=== PATIENT | male | born 1960 | race Caucasian/White ===

== ENCOUNTER 2021-09-23 18:53 | Inpatient (IN) | payer BC, OTHER ==
[~2021-09-23] VITALS: Ht 175.3 cm; Wt 109.8 kg
[2021-09-23] MEDS ORDERED: LACTATED RINGERS 1,000 ML IV ONE ×2 (19:00→19:03)
[2021-09-23] MEDS ORDERED: NS IV 1000 ML 1,000 ML IV SCH ×2 (19:00→19:45)
[2021-09-23] MEDS ORDERED: NS IV 1000 ML 1,000 ML ONE (19:03)
--- NOTE | 2021-09-23 19:14 | ED General ---
General Stated Complaint: SYNCOPE Source of Information: Patient (VERY LIMITED HISTORIAN ABOUT PMH AND DOES NOT KNOW ANY OF HIS MEDICATIONS), EMS History of Present Illness Date Seen by Provider: Sep 23, 2021 Time Seen by Provider: 18:55 Initial Comments PT ARRIVES VIA EMS PT WAS EATING AT [employer] AND SUDDENLY BECAME UNRESPONSIVE/PASSED OUT GIRLFRIEND DID A VIGOROUS STERNAL RUB AND HE GRADUALLY ROUSED. THERE IS EXTENSIVE MACERATION TO CENTER OF CHEST FROM THIS. EMS REPORT THAT BP WAS LOW 50/36, AND PULSE WAS FAINT, AND PT STARTED TO BECOME UNRESPONSIVE AGAIN, THEN BP 117 SYSTOLIC AND PT WAS AWAKE AND TALKING PT WAS COOL AND CLAMMY AT THE SCENE BUT AWAKE AND TALKING BLOOD GLUCOSE 143 FOR EMS PT STATES HE FEELS FINE NOW, AND FELT FINE ALL DAY, UNTIL IMMEDIATELY BEFORE HE PASSED OUT DENIES CHEST PAIN DENIES SHORTNESS OF BREATH DENIES PALPITATIONS DENIES GI SYMPTOMS DENIES HEADACHE NO VISION CHANGES NO FEVER OR RECENT ILLNESS NO PARESTHESIAS OR MOTOR DEFICITS NO CHANGE IN CHRONIC LEG EDEMA--ACTUALLY MUCH BETTER TODAY THAN NORMAL STATES IT STARTED WITH TIGHTNESS IN THE BACK OF HIS NECK / UPPER BACK/ SHOULDERS--THAT IS GONE NOW PT STATES THIS FIRST HAPPENED ABOUT A MONTH AGO AT WORK--DID NOT SEEK CARE AT THE TIME 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 CACERES AT [facility] FOR A STRESS TEST A COUPLE OF YEARS AGO, THEN NEVER FOLLOWED UP STATES SINCE THE EPISODE HE HAD LAST MONTH, HE NOW HAS A NEW PT APPOINTMENT WITH DR. DWYER AT [facility] ON SEPTEMBER 30. PT HAS ONLY HAD ONE COVID-19 VACCINE AND THAT WAS SOMETIME LAST YEAR. 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 [place], [place] Allergies and Home Medications Allergies Coded Allergies: No Known Drug Allergies (Unverified , 09/23/21) Patient Home Medication List Home Medication List Reviewed: Yes Allopurinol (Allopurinol) 300 Mg Tablet, (Reported) Entered as Reported by: Sivan Malhotra on 09/24/2113 Last Action: New Order Cetirizine HCl (Cetirizine HCl) 10 Mg Tablet, (Reported) Entered as Reported by: Sivan Malhotra on 09/24/2113 Last Action: New Order Diltiazem HCl (Diltiazem 24Hr ER) 180 Mg Cap.er.24h, (Reported) Entered as Reported by: Sivan Malhotra on 09/24/2113 Last Action: New Order Flecainide Acetate (Flecainide Acetate) 150 Mg Tablet, (Reported) Entered as Reported by: Sivan Malhotra on 09/24/2113 Last Action: New Order Furosemide (Furosemide) 20 Mg Tablet, (Reported) Entered as Reported by: Sivan Malhotra on 09/24/2113 Last Action: New Order Gabapentin (Gabapentin) 600 Mg Tablet, (Reported) Entered as Reported by: Sivan Malhotra on 09/24/2113 Last Action: New Order Gabapentin (Gralise) 300 Mg Tab.er.24h, (Reported) Entered as Reported by: Sivan Malhotra on 09/24/2113 Last Action: New Order Lisinopril/Hydrochlorothiazide (Lisinopril-Hctz 20-25 mg Tab) 20 Mg-25 Mg Tablet, (Reported) Entered as Reported by: Sivan Malhotra on 09/24/2113 Last Action: New Order Magnesium Oxide (Magnesium Oxide) 400 Mg (241.3 Mg Magnesium) Tablet, (Reported) Entered as Reported by: Sivan Malhotra on 09/24/2113 Last Action: New Order Omeprazole (Omeprazole) 20 Mg Capsule.dr, (Reported) Entered as Reported by: Sivan Malhotra on 09/24/2113 Last Action: New Order Potassium Chloride (Potassium Chloride) 10 Meq Capsule.er, (Reported) Entered as Reported by: Sivan Malhotra on 09/24/2113 Last Action: New Order Rivaroxaban (Xarelto) 20 Mg Tablet, 20 MG PO DAILY, (Reported) Entered as Reported by: Sivan Malhotra on 09/24/2113 Last Action: New Order Tadalafil (Tadalafil) 20 Mg Tablet, (Reported) Entered as Reported by: Sivan Malhotra on 09/24/2113 Last Action: New Order Review of Systems Review of Systems Constitutional: see HPI, diaphoresis EENTM: no symptoms reported Respiratory: no symptoms reported Cardiovascular: see HPI Gastrointestinal: no symptoms reported; No abdominal pain, No diarrhea, No melena, No nausea, No vomiting Genitourinary: no symptoms reported Musculoskeletal: see HPI Skin: no symptoms reported Psychiatric/Neurological: See HPI; Denies Headache, Denies Numbness, Denies Paresthesia, Denies Seizure, Denies Tingling, Denies Tremors, Denies Weakness Hematologic/Lymphatic: No Symptoms Reported Immunological/Allergic: no symptoms reported Past Dxojcwh-Tqgerl-Xuwrtr Hx Patient Social History Tobacco Use?: Yes Tobacco type used: Cigarettes Smoking Status: Former Smoker Substance use?: Yes Additional substance use comme: "IN THE 70'S"--DOES NOT STATE WHAT KINDS Alcohol Use?: Yes Alcohol type: Beer Alcohol Frequency: Daily Past Medical History Surgeries: Yes Orthopedic Respiratory: No Cardiac: Yes Atrial Fibrillation, Chronic Edema/Swelling, High Cholesterol, Hypertension Neurological: Yes Neuropathy Genitourinary: No Gastrointestinal: No Musculoskeletal: Yes (MULTIPLE ORTHO SURGERIES) Fractures Endocrine: No HEENT: No Cancer: No Psychosocial: No Integumentary: No Blood Disorders: No Family Medical History SOCIAL HISTORY: -SMOKED 1 PPD, QUIT > 5 YEARS AGO -ETOH--DRINKS BEER DAILY--OVER A 12 PACK/WEEK -DRUGS--"IN THE 70'S" --DOES NOT STATE WHAT KINDS PAST SURGICAL HISTORY: -RIGHT KNEE--PATELLA FX/ORIF -RIGHT ANKLE REPAIR -BILATERAL CARPAL TUNNEL SURGERY -BILATERAL CUBITAL TUNNEL SURGERY Physical Exam Vital Signs Vital Signs - First Documented 09/23/21 18:54 Temp 36.6 Pulse 105 Resp 16 B/P (MAP) 61/43 (49) Pulse Ox 95 O2 Delivery Room Air Capillary Refill : Height, Weight, BMI Height: '" Weight: lbs. oz. kg; BMI Method: General Appearance: No Apparent Distress, WD/WN, Obese, Other (AWAKE, ALERT, VERY TALKATIVE.) HEENT: PERRL/EOMI, Moist Mucous Membranes, Other (GLASSES) Neck: Full Range of Motion, Normal Inspection, Non Tender, Supple Respiratory: Normal Breath Sounds, No Accessory Muscle Use, No Respiratory Distress, Other (ABRASION/SKIN MACERATION TO MID CHEST FROM RECENT STERNAL RUB --PRIOR TO ARRIVAL) Cardiovascular: No JVD, No Murmur, Normal Peripheral Pulses, Irregularly Irregular Gastrointestinal: Normal Bowel Sounds, Non Tender, Soft Back: No CVA Tenderness Extremity: Pedal Edema (TRACE EDEMA BILATERALLY. 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 as Tested Skin: Normal Color, Cool (DRY) Focused Exam Sepsis Stage: Sepsis (POSSIBLE SEPSIS VS DEHYDRATION) Possible Source: Pulmonary Lactate Level 09/23/21 19:01: Lactic Acid Level 2.28*H Time of Focused Exam: 21:00 Respiratory: Normal Breath Sounds, No Accessory Muscle Use, No Respiratory Distress Cardiovascular: No Edema, No JVD, No Murmur, Normal Peripheral Pulses, Irregularly Irregular Capillary Refill: Less Than 3 Seconds Skin: normal color, warm/dry Lactic Acid Level Laboratory Tests Test 09/23/21 19:01 Lactic Acid Level 2.28 MMOL/L (0.50-2.00) *H Within 3hrs of presentation: Admin fluids, Admin ABX, Blood cultures prior to ABX's, Focus exam, Lactate level Progress/Results/Core Measures Suspected Sepsis SIRS Temperature: Pulse: Respiratory Rate: Laboratory Tests 09/23/21 19:01: White Blood Count 13.2H Blood Pressure / Mean: 09/23/21 19:01: Lactic Acid Level 2.28*H Laboratory Tests 09/23/21 19:01: Creatinine 1.84H, INR Comment 1.8H, Platelet Count 295, Total Bilirubin 0.4 Results/Orders Lab Results Laboratory Tests Test 09/23/21 19:01 09/23/21 19:02 09/23/21 19:25 Range/Units White Blood Count 13.2 H 4.3-11.0 10^3/uL Red Blood Count 4.20 L 4.30-5.52 10^6/uL Hemoglobin 14.5 13.3-17.7 g/dL Hematocrit 43 40-54 % Mean Corpuscular Volume 103 H 80-99 fL Mean Corpuscular Hemoglobin 35 H 25-34 pg Mean Corpuscular Hemoglobin Concent 34 32-36 g/dL Red Cell Distribution Width 13.6 10.0-14.5 % Platelet Count 295 130-400 10^3/uL Mean Platelet Volume 8.7 L 9.0-12.2 fL Immature Granulocyte % (Auto) 0 % Neutrophils (%) (Auto) 65 42-75 % Lymphocytes (%) (Auto) 24 12-44 % Monocytes (%) (Auto) 7 0-12 % Eosinophils (%) (Auto) 3 0-10 % Basophils (%) (Auto) 1 0-10 % Neutrophils # (Auto) 8.6 H 1.8-7.8 10^3/uL Lymphocytes # (Auto) 3.2 1.0-4.0 10^3/uL Monocytes # (Auto) 0.9 0.0-1.0 10^3/uL Eosinophils # (Auto) 0.4 H 0.0-0.3 10^3/uL Basophils # (Auto) 0.1 0.0-0.1 10^3/uL Immature Granulocyte # (Auto) 0.1 0.0-0.1 10^3/uL Erythrocyte Sedimentation Rate 22 0-30 MM/HR Prothrombin Time 21.3 H 12.2-14.7 SEC INR Comment 1.8 H 0.8-1.4 Activated Partial Thromboplast Time 33 24-35 SEC D-Dimer < 0.27 0.00-0.49 UG/ML Sodium Level 138 135-145 MMOL/L Potassium Level 4.3 3.6-5.0 MMOL/L Chloride Level 99 98-107 MMOL/L Carbon Dioxide Level 24 21-32 MMOL/L Anion Gap 15 H 5-14 MMOL/L Blood Urea Nitrogen 19 H 7-18 MG/DL Creatinine 1.84 H 0.60-1.30 MG/DL Estimat Glomerular Filtration Rate 41 BUN/Creatinine Ratio 10 Glucose Level 128 H 70-105 MG/DL Lactic Acid Level 2.28 *H 0.50-2.00 MMOL/L Calcium Level 9.8 8.5-10.1 MG/DL Corrected Calcium 9.6 8.5-10.1 MG/DL Magnesium Level 1.6 1.6-2.4 MG/DL Total Bilirubin 0.4 0.1-1.0 MG/DL Aspartate Amino Transf (AST/SGOT) 27 5-34 U/L Alanine Aminotransferase (ALT/SGPT) 32 0-55 U/L Alkaline Phosphatase 103 40-136 U/L Total Creatine Kinase 47 30-200 U/L Creatine Kinase MB 1.0 <6.6 NG/ML Myoglobin 98.0 H 10.0-92.0 NG/ML Troponin I < 0.028 <0.028 NG/ML C-Reactive Protein High Sensitivity 0.50 0.00-0.50 MG/DL B-Type Natriuretic Peptide 83.9 <100.0 PG/ML Total Protein 7.7 6.4-8.2 GM/DL Albumin 4.2 3.2-4.5 GM/DL Lipase 54 8-78 U/L Procalcitonin 0.10 H <0.10 NG/ML TSH Trigg Testing 1.32 0.35-4.94 UIU/ML Acetaminophen Level < 10 L 10-30 UG/ML Serum Alcohol < 10 <10 MG/DL Influenza Type A (RT-PCR) Not Detected Not Detecte Influenza Type B (RT-PCR) Not Detected Not Detecte SARS-CoV-2 RNA (RT-PCR) Detected H Not Detecte My Orders Orders - ELIJAH BRAUN DO Accucheck Stat ONCE (09/23/21 18:54) Ed Iv/Invasive Line Start (09/23/21 18:54) Ekg Tracing (09/23/21 18:54) O2 (09/23/21 18:54) Monitor-Rhythm Ecg Trace Only (09/23/21 18:54) Ct Head Wo-R/O Stroke (09/23/21 18:54) Chest 1 View, Ap/Pa Only (09/23/21 18:54) Acetaminophen (09/23/21 18:54) Alcohol (09/23/21 18:54) Bnp [place] (09/23/21 18:54) Cbc With Automated Diff (09/23/21 18:54) Comprehensive Metabolic Panel (09/23/21 18:54) Creatine Kinase (09/23/21 18:54) Creatine Kinase Mb (09/23/21 18:54) Hs C Reactive Protein (09/23/21 18:54) Fibrin Degradation Products (09/23/21 18:54) Drug Screen Stat (Urine) (09/23/21 18:54) Lipase (09/23/21 18:54) Magnesium (09/23/21 18:54) Protime With Inr (09/23/21 18:54) Partial Thromboplastin Time (09/23/21 18:54) Ua Culture If Indicated (09/23/21 18:54) Erythrocyte Sedimentation Rate (09/23/21 18:54) Myoglobin Serum (09/23/21 18:54) Troponin I Kiran (09/23/21 18:54) Ed Iv/Invasive Line Start (09/23/21 18:54) Ed Iv/Invasive Line Start (09/23/21 19:00) Lactated Ringers (Lr 1000 Ml Iv Solution (09/23/21 19:00) Ns Iv 1000 Ml (Sodium Chloride 0.9%) (09/23/21 19:00) Lactic Acid Analyzer (09/23/21 19:00) Procalcitonin (Pct) (09/23/21 19:00) Thyroid Analyzer (09/23/21 19:00) Covid 19 Inhouse Test (09/23/21 19:00) Influenza A And B By Pcr (09/23/21 19:00) Isolation Central Supply Req (09/23/21 19:00) Arterial Blood Gas (09/23/21 19:00) Blood Culture (09/23/21 19:00) Ed Iv/Invasive Line Start (09/23/21 19:00) Vital Signs Adult Sepsis Patie Q15M (09/23/21 19:00) Remove Rings In Anticipation O (09/23/21 19:00) Ns Iv 1000 Ml (Sodium Chloride 0.9%) (09/23/21 19:03) Lactated Ringers (Lr 1000 Ml Iv Solution (09/23/21 19:03) Ed Iv/Invasive Line Start (09/23/21 19:41) Ns Iv 1000 Ml (Sodium Chloride 0.9%) (09/23/21 19:45) Ct Zaira Chest/Noang Abd-Pelv W (09/23/21 19:47) Iohexol Injection (Omnipaque 350 Mg/Ml 1 (09/23/21 20:00) Received Contrast (Hold Metformin- Contr (09/23/21 20:00) Ns (Ivpb) (Sodium Chloride 0.9% Ivpb Bag (09/23/21 20:00) Sodium Chloride Flush (Catheter Flush Sy (09/23/21 20:00) Ceftriaxone 1 Gm Pre-Mix (Rocephin 1 Gm (09/23/21 21:15) Azithromycin Injection (Zithromax Inject (09/23/21 21:15) Medications Given in ED Current Medications Medications Dose Ordered Sig/Vivien Route Start Time Stop Time Status Last Admin Dose Admin Iohexol 100 ml ONCE ONCE IV 09/23/21 20:00 09/23/21 20:01 DC 09/23/21 20:13 100 ML Lactated Ringer's 1,000 ml @ 0 mls/hr Q0M ONCE IV 09/23/21 19:00 09/23/21 19:03 DC 09/23/21 19:27 0 MLS/HR Sodium Chloride 10 ml NEEDED PRN IV 09/23/21 20:00 09/23/21 20:14 10 ML Sodium Chloride 100 ml ONCE ONCE IV 09/23/21 20:00 09/23/21 20:01 DC 09/23/21 20:14 80 ML Vital Signs/I&O 09/23/21 09/23/21 18:54 18:54 Temp 36.6 Pulse 105 Resp 16 B/P (MAP) 61/43 (49) Pulse Ox 95 95 O2 Delivery Room Air Room Air 09/23/21 23:59 Intake Total 2100 ml Balance 2100 ml Capillary Refill : Progress Note : Progress Note INITIAL BP 61/47, HR VARIABLE IN ATRIAL FIBRILLATION, BUT NOT IN EXCESS OF 120 BPM GIVEN IV FLUIDS, AND PLACED IN TRENDELENBERG BP UP TO > 100 SYSTOLIC COVID TESTING DONE SEPSIS PROTOCOL INITIATED. PT COMPLETELY ASYMPTOMATIC FOR ENTIRE ER STAY ECG Initial ECG Impression Date: Sep 23, 2021 Initial ECG Impression Time: 19:06 Initial ECG Rate: 77 Initial ECG Rhythm: A Fib/Flutter Initial ECG Impression: Nonspecific Changes (IVCD), Atrial Fibrillation Initial ECG Comparisson: No Previous ECG Available Diagnostic Imaging Comments PER RADIOLOGIST REPORTS AT 1930 CXR---FINDINGS: The cardiac silhouette is within normal limits in size. No significant pulmonary vascular congestion. 9 mm rounded nodular density overlying the right lung base. Otherwise, the lungs are clear. No pleural effusion. No pneumothorax. No acute osseous abnormality. IMPRESSION: 1. 9 mm nodular density overlying the right lung base, favored to relate to the nipple shadow. Recommend repeat frontal and lateral radiographs of the chest with nipple markers in place. True pulmonary nodule not excluded. 2. No additional superimposed acute cardiopulmonary abnormality. CT HEAD--PER RADIOLOGIST REPORT AT 2099 FINDINGS: No intracranial hemorrhage. No intracranial mass, mass effect, midline shift, herniation, hydrocephalus or extra-axial fluid collection. No CT evidence of an acute ischemic infarction. The orbits are unremarkable. Background vascular calcifications. The paranasal sinuses are clear. The calvarium and extracalvarial soft tissues are unremarkable. IMPRESSION: 1. No acute intracranial abnormality. 2. Should there remain clinical concern for recent infarction, then further evaluation with MRI of the brain would be recommended. CT ANGIOGRAM CHEST/ABDOMEN-PELVIS--PER RADIOLOGIST REPORT AT 2100 FINDINGS: The thyroid gland is enlarged and nodular, particularly the left thyroid lobe. No pathologically enlarged lymph nodes within the chest. Mild scattered vascular calcifications. No aneurysmal dilatation of the thoracic aorta. The heart is borderline enlarged. No pericardial effusion. No pleural effusion. The trachea is patent. No pneumothorax. Minimal right lower lobe atelectasis or less likely pneumonitis. No significant filling defect within the central or segmental pulmonary arteries. Minimal scattered osseous degenerative changes without acute osseous abnormality. The liver is unremarkable. 2.5 cm hypodensity within the spleen. The spleen is otherwise unremarkable. 1.4 cm fat density mass within the left adrenal gland. The right adrenal gland is unremarkable. The pancreas is unremarkable. The gallbladder is unremarkable. The left renal collecting system is partially duplicated. The left kidney and left ureter are otherwise unremarkable. The urinary bladder is predominantly decompressed. The prostate gland is unremarkable for age. The appendix is unremarkable. No bowel obstruction or pneumatosis. No significant adenopathy, free air or free fluid within the abdomen or pelvis. Mild scattered osseous degenerative changes without acute osseous abnormality. IMPRESSION: 1. No significant pulmonary embolus. 2. Minimal right basilar atelectasis and/or pneumonitis. 3. Enlarged and nodular thyroid gland. A nonemergent thyroid ultrasound would help to further evaluate if this has not previously been evaluated. 4. 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 5. 2.5 cm splenic hypodensity, favored to relate to a hemangioma or cyst. Reviewed: Reviewed by Ct Departure Communication (Admissions) 2111--SPOKE WITH DR. MORGAN, HOSPITALIST, ACCEPTS PT FOR ADMIT. Impression Primary Impression: Syncope Additional Impressions: Severe hypotension Chronic atrial fibrillation COVID-19 virus infection Dehydration Pneumonia due to COVID-19 virus Renal insufficiency Lactic acidosis Disposition: ADMITTED INPATIENT Condition: Improved Admissions Decision to Admit Reason: Admit from ER (General) Decision to Admit/Date: Sep 23, 2021 Time/Decision to Admit Time: 21:15 Departure-Patient Inst. Referrals: RAÚL HOWARD DO (PCP/Family) Primary Care Physician ELIJAH BRAUN DO Sep 23, 2021 19:14
--- NOTE | 2021-09-23 19:26 | Diagnostic Imaging Report ---
PROCEDURE: CT head w/o r/o stroke. TECHNIQUE: Multiple contiguous axial images were obtained through the brain without the use of intravenous contrast. Auto Exposure Controls were utilized during the CT exam to meet ALARA standards for radiation dose reduction. INDICATION: Neurodeficit, stroke. COMPARISON: None available. FINDINGS: No intracranial hemorrhage. No intracranial mass, mass effect, midline shift, herniation, hydrocephalus or extra-axial fluid collection. No CT evidence of an acute ischemic infarction. The orbits are unremarkable. Background vascular calcifications. The paranasal sinuses are clear. The calvarium and extracalvarial soft tissues are unremarkable. IMPRESSION: 1. No acute intracranial abnormality. 2. Should there remain clinical concern for recent infarction, then further evaluation with MRI of the brain would be recommended. Dictated by: Dictated on workstation # [id number]
--- NOTE | 2021-09-23 19:27 | Diagnostic Imaging Report ---
INDICATION: Syncope. COMPARISON: None available. TECHNIQUE: Single radiograph of the chest dated September 23, 2021. FINDINGS: The cardiac silhouette is within normal limits in size. No significant pulmonary vascular congestion. 9 mm rounded nodular density overlying the right lung base. Otherwise, the lungs are clear. No pleural effusion. No pneumothorax. No acute osseous abnormality. IMPRESSION: 1. 9 mm nodular density overlying the right lung base, favored to relate to the nipple shadow. Recommend repeat frontal and lateral radiographs of the chest with nipple markers in place. True pulmonary nodule not excluded. 2. No additional superimposed acute cardiopulmonary abnormality. Dictated by: Dictated on workstation # [id number]
[2021-09-23 19:30] LABS: BASOPHILS # (AUTO) 0.1 10^3/uL (0.0-0.1); BASOPHILS % (AUTO) 1 % (0-10); EOSINOPHILS # (AUTO) 0.4 10^3/uL (0.0-0.3); EOSINOPHILS % (AUTO) 3 % (0-10); HEMATOCRIT 43 % (40-54); HEMOGLOBIN 14.5 g/dL (13.3-17.7); LYMPHOCYTES # (AUTO) 3.2 10^3/uL (1.0-4.0); LYMPHOCYTES % (AUTO) 24 % (12-44); MEAN CORPUSCULAR HEMOGLOBIN 35 pg (25-34); MEAN CORPUSCULAR HGB CONC 34 g/dL (32-36); MEAN CORPUSCULAR VOLUME 103 fL (80-99); MEAN PLATELET VOLUME 8.7 fL (9.0-12.2); MONOCYTES # (AUTO) 0.9 10^3/uL (0.0-1.0); MONOCYTES % (AUTO) 7 % (0-12); NEUTROPHILS # (AUTO) 8.6 10^3/uL (1.8-7.8); NEUTROPHILS % (AUTO) 65 % (42-75); PLATELET COUNT 295 10^3/uL (130-400); WHITE BLOOD COUNT 13.2 10^3/uL (4.3-11.0)
[2021-09-23 19:39] LABS: ALANINE AMINOTRANSFERASE 32 U/L (0-55); ALBUMIN 4.2 GM/DL (3.2-4.5); ALKALINE PHOSPHATASE 103 U/L (40-136); BILIRUBIN,TOTAL 0.4 MG/DL (0.1-1.0); BUN/CREATININE RATIO 10; CALCIUM 9.8 MG/DL (8.5-10.1); CARBON DIOXIDE 24 MMOL/L (21-32); CHLORIDE 99 MMOL/L (98-107); CREATINE KINASE 47 U/L (30-200); CREATININE SERUM 1.84 MG/DL (0.60-1.30); GFR ESTIMATED 41; GLUCOSE 128 MG/DL (70-105); LIPASE 54 U/L (8-78); MAGNESIUM 1.6 MG/DL (1.6-2.4); POTASSIUM 4.3 MMOL/L (3.6-5.0); SODIUM 138 MMOL/L (135-145); TOTAL PROTEIN 7.7 GM/DL (6.4-8.2)
[2021-09-23 19:52] LABS: ACETAMINOPHEN < 10 UG/ML (10-30)
[2021-09-23 20:00] LABS: INR 1.8 (0.8-1.4); PARTIAL THROMBOPLASTIN TIME 33 SEC (24-35); PROTHROMBIN TIME PATIENT 21.3 SEC (12.2-14.7)
[2021-09-23] MEDS ORDERED: IOHEXOL 350 MG/ML 100 ML (OMNIPAQUE 350) VIAL IV ONE (20:00)
[2021-09-23] MEDS ORDERED: HOLD METFORMIN - RECEIVED CONTRAST 20 ML VIAL IV SCH (20:00)
[2021-09-23] MEDS ORDERED: CATHETER FLUSH 10 ML SYR IV PRN (20:00)
[2021-09-23] MEDS ORDERED: NS 100 ML (IVPB) BAG IV ONE (20:00)
[2021-09-23 20:01] LABS: FIBRIN DEGRADATION PRODUCTS < 0.27 UG/ML (0.00-0.49)
[2021-09-23 20:02] LABS: ERYTHROCYTE SEDIMENTATION RATE 22 MM/HR (0-30); TSH (THYROID ANALYZER) 1.32 UIU/ML (0.35-4.94)
--- NOTE | 2021-09-23 20:42 | Diagnostic Imaging Report ---
INDICATION: HYpotension, Covid +, syncope EXAMINATION: CTA chest, abdomen and pelvis. TECHNIQUE: Thin axial sections through the chest, abdomen and pelvis are obtained following intravenous contrast bolus. Multiplanar MIP images were reconstructed and reviewed. All CT scans use one or more of the following dose optimizing techniques: automated exposure control, MA and/or KvP adjustment based on patient size and exam type or iterative reconstruction. COMPARISON: Radiographs from the same date. FINDINGS: The thyroid gland is enlarged and nodular, particularly the left thyroid lobe. No pathologically enlarged lymph nodes within the chest. Mild scattered vascular calcifications. No aneurysmal dilatation of the thoracic aorta. The heart is borderline enlarged. No pericardial effusion. No pleural effusion. The trachea is patent. No pneumothorax. Minimal right lower lobe atelectasis or less likely pneumonitis. No significant filling defect within the central or segmental pulmonary arteries. Minimal scattered osseous degenerative changes without acute osseous abnormality. The liver is unremarkable. 2.5 cm hypodensity within the spleen. The spleen is otherwise unremarkable. 1.4 cm fat density mass within the left adrenal gland. The right adrenal gland is unremarkable. The pancreas is unremarkable. The gallbladder is unremarkable. The left renal collecting system is partially duplicated. The left kidney and left ureter are otherwise unremarkable. The urinary bladder is predominantly decompressed. The prostate gland is unremarkable for age. The appendix is unremarkable. No bowel obstruction or pneumatosis. No significant adenopathy, free air or free fluid within the abdomen or pelvis. Mild scattered osseous degenerative changes without acute osseous abnormality. IMPRESSION: 1. No significant pulmonary embolus. 2. Minimal right basilar atelectasis and/or pneumonitis. 3. Enlarged and nodular thyroid gland. A nonemergent thyroid ultrasound would help to further evaluate if this has not previously been evaluated. 4. 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 5. 2.5 cm splenic hypodensity, favored to relate to a hemangioma or cyst. Dictated by: Dictated on workstation # [id number]
[2021-09-23] MEDS ORDERED: cefTRIAXone 1 GM PRE-MIX 50 ML IV ONE (21:15)
[2021-09-23] MEDS ORDERED: AZITHROMYCIN INJECTION 500 MG in NS (IVPB) 250 ML IV ONE (21:15)
[2021-09-23] MEDS ORDERED: IBUPROFEN 800 MG (MOTRIN) TAB PO PRN (22:15)
[2021-09-23] MEDS ORDERED: ONDANSETRON 4 MG/2 ML (SDV) Z0FRAN IV PRN (22:15)
[2021-09-23] MEDS ORDERED: EPINEPHrine 1 MG INJECTION 4 MG in NS (IVPB) 248 ML IV SCH (22:15)
[2021-09-23] MEDS ORDERED: ACETAMINOPHEN 500 MG TAB (TYLENOL) PO PRN (22:15)
[2021-09-23] MEDS: VASOPRESSIN INJECTION 20 UNIT in NS (IVPB) 100 ML IV SCH (23:35)
[2021-09-23] MEDS: NOREPINEPHRINE 8 MG/250 ML 250 ML IV SCH (23:36)
[2021-09-24] MEDS ORDERED: MGX400T (00:14)
[2021-09-24] MEDS ORDERED: LISI1TAB48 (00:14)
[2021-09-24] MEDS ORDERED: DILT180C85 (00:14)
[2021-09-24] MEDS ORDERED: RIVA20TA PO (00:14)
[2021-09-24] MEDS ORDERED: FURO20TA4 (00:14)
[2021-09-24] MEDS ORDERED: TADA20TA43 (00:14)
[2021-09-24] MEDS ORDERED: CETI10TA17 (00:14)
[2021-09-24] MEDS ORDERED: OMEP20CA18 (00:14)
[2021-09-24] MEDS ORDERED: ALLO300T2 (00:14)
[2021-09-24] MEDS ORDERED: GBPN600T PO (00:14)
[2021-09-24] MEDS ORDERED: POTA10CA43 (00:14)
[2021-09-24] MEDS ORDERED: FLEC150T2 (00:14)
[2021-09-24] MEDS ORDERED: GABA300T24 PO (00:14)
[2021-09-24] MEDS: LACTATED RINGERS 1,000 ML IV SCH ×3 (00:15→11:41)
--- NOTE | 2021-09-24 00:24 | Tele-ICU Consult ---
Progress Note 61 yo male presented with passing out spell at a restaurant. He was found to be cold and clammy. He was given fluid boluses in ED Past [place]klpquv-Jrirbx-Vdgtsw Hx Patient Social History Tobacco Use?: Yes Tobacco type used: Cigarettes Smoking Status: Former Smoker Substance use?: Yes Additional substance use comme: "IN THE 70'S"--DOES NOT STATE WHAT KINDS Alcohol Use?: Yes Alcohol type: Beer Alcohol Frequency: Daily Past Medical History Surgeries: Yes Orthopedic Respiratory: No Cardiac: Yes Atrial Fibrillation, Chronic Edema/Swelling, High Cholesterol, Hypertension Neuropathy Genitourinary: No Gastrointestinal: No Musculoskeletal: Yes (MULTIPLE ORTHO SURGERIES) Fractures Endocrine: No HEENT: No Cancer: No Psychosocial: No Integumentary: No Blood Disorders: No Family Medical History SOCIAL HISTORY: -SMOKED 1 PPD, QUIT > 5 YEARS AGO -ETOH--DRINKS BEER DAILY--OVER A 12 PACK/WEEK -DRUGS--"IN THE 70'S" --DOES NOT STATE WHAT KINDS PAST SURGICAL HISTORY: -RIGHT KNEE--PATELLA FX/ORIF -RIGHT ANKLE REPAIR -BILATERAL CARPAL TUNNEL SURGERY -BILATERAL CUBITAL TUNNEL SURGERY On video, Pt with eyes open in NAD Vitals stable Good air entry b/l Heart reg Abdomen soft A/P Covid positve MILO vs CKD Plan IVF hydration Recheck troponin Lovenox x one prophy Focused Exam Lactate Level 09/23/21 19:01: Lactic Acid Level 2.28*H 09/23/21 21:15: Lactic Acid Level 1.13 Height, Weight, BMI Height: '" Weight: lbs. oz. kg; 35.00 BMI Method: Time of Focused Exam: 21:00 Respiratory: Lungs Clear, Normal Breath Sounds Cardiovascular: Regular Rate, Rhythm Skin: normal color Lactic Acid Level Laboratory Tests Test 09/23/21 21:15 Lactic Acid Level 1.13 MMOL/L (0.50-2.00) Vital Signs Vitals Signs Heart Rate: 84, Respiratory Rate: 14, BP: 107/61, Pulse Oximetry: 95, Weight: 110.0 Vitals - Labs Vital Signs - I&O Vital Signs Date Time Temp Pulse Resp B/P (MAP) Pulse Ox O2 Delivery O2 Flow Rate FiO2 09/23/21 22:08 84 09/23/21 21:53 16 97/74 96 Nasal Cannula 4.00 09/23/21 21:34 36.9 75 14 107/61 95 Room Air 09/23/21 18:54 36.6 105 16 61/43 (49) 95 Room Air 09/23/21 18:54 95 Room Air I & O 09/24/21 06:59 Intake Total 3405 ml Balance 3405 ml Labs Laboratory Tests 09/23/21 19:01: White Blood Count 13.2H, Red Blood Count 4.20L, Hemoglobin 14.5, Hematocrit 43, Mean Corpuscular Volume 103H, Mean Corpuscular Hemoglobin 35H, Mean Corpuscular Hemoglobin Concent 34, Red Cell Distribution Width 13.6, Platelet Count 295, Lynn n Platelet Volume 8.7L, Immature Granulocyte % (Auto) 0, Neutrophils (%) (Auto) 65, Lymphocytes (%) (Auto) 24, Monocytes (%) (Auto) 7, Eosinophils (%) (Auto) 3, Basophils (%) (Auto) 1, Neutrophils # (Auto) 8.6H, Lymphocytes # (Auto) 3.2, Monocytes # (Auto) 0.9, Eosinophils # (Auto) 0.4H, Basophils # (Auto) 0.1, Immature Granulocyte # (Auto) 0.1, Erythrocyte Sedimentation Rate 22, Prothrombin Time 21.3H, INR Comment 1.8H, Activated Partial Thromboplast Time 33, D-Dimer < 0.27, Sodium Level 138, Potassium Level 4.3, Chloride Level 99, Carbon Dioxide Level 24, Anion Gap 15H, Blood Urea Nitrogen 19H, Creatinine 1.84H, Estimat Glomerular Filtration Rate 41, BUN/Creatinine Ratio 10, Glucose Level 128H, Lactic Acid Level 2.28*H, Calcium Level 9.8, Corrected Calcium 9.6, Magnesium Level 1.6, Total Bilirubin 0.4, Aspartate Amino Transf (AST/SGOT) 27, Alanine Aminotransferase (ALT/SGPT) 32, Alkaline Phosphatase 103, Total Creatine Kinase 47, Creatine Kinase MB 1.0, Myoglobin 98.0H, Troponin I < 0.028, C- Reactive Protein High Sensitivity 0.50, B-Type Natriuretic Peptide 83.9, Total Protein 7.7, Albumin 4.2, Lipase 54, Procalcitonin 0.10H, TSH [facility] Testing 1.32, Acetaminophen Level < 10L, Serum Alcohol < 10 09/23/21 19:02: Influenza Type A (RT-PCR) Not Detected, Influenza Type B (RT-PCR) Not Detected, SARS-CoV-2 RNA (RT-PCR) DetectedH 09/23/21 19:25: 09/23/21 21:15: Lactic Acid Level 1.13 09/24/21 00:05: Social History Patient Social History Substance type: Nicotine Have you traveled recently?: No Alcohol Use?: Yes Labs Laboratory Tests 09/23/21 19:01 Results Results/Procedures Labs Laboratory Tests 09/23/21 19:01 Patient resulted labs reviewed. Results Labs Labs Laboratory Tests 09/23/21 19:01: White Blood Count 13.2H, Red Blood Count 4.20L, Hemoglobin 14.5, Hematocrit 43, Mean Corpuscular Volume 103H, Mean Corpuscular Hemoglobin 35H, Mean Corpuscular Hemoglobin Concent 34, Red Cell Distribution Width 13.6, Platelet Count 295, Mean Platelet Volume 8.7L, Immature Granulocyte % (Auto) 0, Neutrophils (%) (Auto) 65, Lymphocytes (%) (Auto) 24, Monocytes (%) (Auto) 7, Eosinophils (%) (Auto) 3, Basophils (%) (Auto) 1, Neutrophils # (Auto) 8.6H, Lymphocytes # (Auto) 3.2, Monocytes # (Auto) 0.9, Eosinophils # (Auto) 0.4H, Basophils # (A uto) 0.1, Immature Granulocyte # (Auto) 0.1, Erythrocyte Sedimentation Rate 22, Prothrombin Time 21.3H, INR Comment 1.8H, Activated Partial Thromboplast Time 33, D-Dimer < 0.27, Sodium Level 138, Potassium Level 4.3, Chloride Level 99, Carbon Dioxide Level 24, Anion Gap 15H, Blood Urea Nitrogen 19H, Creatinine 1.84H, Estimat Glomerular Filtration Rate 41, BUN/Creatinine Ratio 10, Glucose Level 128H, Lactic Acid Level 2.28*H, Calcium Level 9.8, Corrected Calcium 9.6, Magnesium Level 1.6, Total Bilirubin 0.4, Aspartate Amino Transf (AST/SGOT) 27, Alanine Aminotransferase (ALT/SGPT) 32, Alkaline Phosphatase 103, Total Creatine Kinase 47, Creatine Kinase MB 1.0, Myoglobin 98.0H, Troponin I < 0.028, C- Reactive Protein High Sensitivity 0.50, B-Type Natriuretic Peptide 83.9, Total Protein 7.7, Albumin 4.2, Lipase 54, Procalcitonin 0.10H, TSH [facility] Testing 1.32, Acetaminophen Level < 10L, Serum Alcohol < 10 09/23/21 19:02: Influenza Type A (RT-PCR) Not Detected, Influenza Type B (RT-PCR) Not Detected, SARS-CoV-2 RNA (RT-PCR) DetectedH 09/23/21 19:25: 09/23/21 21:15: Lactic Acid Level 1.13 09/24/21 00:05: BRODERICK UMANA MD Sep 24, 2021 00:24
[2021-09-24 00:44] VITALS: BP 106/61
[2021-09-24] MEDS: NS IV 1000 ML 1,000 ML IV SCH ×3 (01:12→21:10)
[2021-09-24 05:01] LABS: BASOPHILS # (AUTO) 0.1 10^3/uL (0.0-0.1); BASOPHILS % (AUTO) 1 % (0-10); EOSINOPHILS # (AUTO) 0.2 10^3/uL (0.0-0.3); EOSINOPHILS % (AUTO) 2 % (0-10); HEMATOCRIT 36 % (40-54); LYMPHOCYTES # (AUTO) 2.3 10^3/uL (1.0-4.0); LYMPHOCYTES % (AUTO) 23 % (12-44); MEAN CORPUSCULAR HEMOGLOBIN 35 pg (25-34); MEAN CORPUSCULAR HGB CONC 33 g/dL (32-36); MEAN CORPUSCULAR VOLUME 105 fL (80-99); MEAN PLATELET VOLUME 8.7 fL (9.0-12.2); MONOCYTES # (AUTO) 0.6 10^3/uL (0.0-1.0); MONOCYTES % (AUTO) 6 % (0-12); NEUTROPHILS # (AUTO) 6.8 10^3/uL (1.8-7.8); NEUTROPHILS % (AUTO) 68 % (42-75); PLATELET COUNT 200 10^3/uL (130-400)
[2021-09-24 05:16] LABS: ALBUMIN 3.3 GM/DL (3.2-4.5); POTASSIUM 4.1 MMOL/L (3.6-5.0)
[2021-09-24 05:17] LABS: CALCIUM 8.6 MG/DL (8.5-10.1)
[2021-09-24 05:19] LABS: TOTAL PROTEIN 5.9 GM/DL (6.4-8.2)
[2021-09-24 05:20] LABS: BILIRUBIN,TOTAL 0.3 MG/DL (0.1-1.0)
[2021-09-24 05:22] LABS: CREATININE SERUM 1.09 MG/DL (0.60-1.30); PHOSPHORUS 3.5 MG/DL (2.3-4.7)
[2021-09-24 05:25] LABS: MAGNESIUM 1.4 MG/DL (1.6-2.4)
[2021-09-24] MEDS ORDERED: KCL 20 MEQ TAB (K-DUR) PO SCH (06:00)
[2021-09-24] MEDS ORDERED: POTASSIUM CL 10MEQ/50ML IVPB 50 ML IV SCH (06:00)
[2021-09-24] MEDS ORDERED: MAGNESIUM 1 GM/100 ML IVPB 100 ML IV SCH (06:00)
[2021-09-24] MEDS: MAGNESIUM 1 GM/100 ML IVPB 100 ML IV SCH ×4 (07:09→09:30)
--- NOTE | 2021-09-24 08:47 | Tele-ICU Progress Note ---
Subjective Date Seen by a Provider: Sep 24, 2021 Time Seen by a Provider: 08:47 Subjective/Events-last exam Available chart/vitals/labs/images reviewed. Video assessment done using telemetry ICU camera, rest of exam as per RN. Discussion with the RN, exam as per RN. Hospital course Apparently this patient has a history of COVID infection and was admitted in a hospital in [facility] from where he has been discharged. Details of which is not clear at this time. He also has a history of for atrial fibrillation for which he was prescribed diltiazem flecainide and Xarelto. Now he is admitted in this hospital because he had a syncopal episode and brought to the emergency room where he is found to have a hypotension requiring fluid resuscitation however he did not require vasopressor therapy initially his lactate level is 2.5 and subsequently it came down to normal. Currently he denies any chest pain or shortness of breath. He was evaluated with a CT angiogram of the chest and abdomen and found no pulmonary emboli or any acute abdominal process. He did have a mild abnormalities at lung bases which to me looks like it subsegmental atelectasis. I do not think he has any active pneumonia going on. During this hospital stay he is found to have a COVID19 PCR positive. I believe this is residual effect from previous infection. I made a video visit and discussed with the patient and the NEWS CAMERA OPERATOR. Currently he is in sinus rhythm. He was seen by cardiology already. His magnesium is low for which I have replaced. Review of Systems ROS PER RN Sepsis Event Evaluation Height, Weight, BMI Height: '" Weight: lbs. oz. kg; 35.00 BMI Method: Focused Exam Lactate Level 09/23/21 19:01: Lactic Acid Level 2.28*H 09/23/21 21:15: Lactic Acid Level 1.13 Time of Focused Exam: 21:00 Exam Exam Patient acknowledged, consented, and participated in this virtual visit which was conducted using real time audio/video Vital Signs Date Time Temp Pulse Resp B/P (MAP) Pulse Ox O2 Delivery O2 Flow Rate FiO2 09/24/21 07:44 36.1 72 16 116/74 100 Room Air 09/24/21 07:00 68 09/24/21 07:00 70 11 99/63 100 Nasal Cannula 4.00 09/24/21 06:00 64 13 102/67 100 Nasal Cannula 4.00 09/24/21 05:00 61 11 104/65 100 Nasal Cannula 4.00 09/24/21 05:00 36.7 09/24/21 04:00 69 12 98/67 100 Nasal Cannula 4.00 09/24/21 04:00 Room Air 09/24/21 03:00 63 12 102/59 100 Nasal Cannula 4.00 09/24/21 02:00 66 18 107/61 99 Nasal Cannula 4.00 09/24/21 01:00 66 16 111/55 98 Nasal Cannula 4.00 09/24/21 00:58 61 09/24/21 00:44 36.7 65 16 106/61 (76) 95 Room Air 09/24/21 00:26 Room Air 09/24/21 00:00 61 16 100/62 97 Nasal Cannula 4.00 09/24/21 00:00 36.7 09/23/21 23:00 68 18 111/60 98 Nasal Cannula 4.00 09/23/21 22:08 84 09/23/21 21:53 16 97/74 96 Nasal Cannula 4.00 09/23/21 21:34 36.9 75 14 107/61 95 Room Air 09/23/21 18:54 36.6 105 16 61/43 (49) 95 Room Air 09/23/21 18:54 95 Room Air I & O 09/24/21 07:00 Intake Total 3955 ml Balance 3955 ml Height & Weight Height: '" Weight: lbs. oz. kg; 35.00 BMI Method: General Appearance: No Apparent Distress, WD/WN, Obese, Other (AWAKE, ALERT, VERY TALKATIVE.) HEENT: PERRL/EOMI, Moist Mucous Membranes, Other (GLASSES) Neck: Full Range of Motion, Normal Inspection, Non Tender, Supple Respiratory: Normal Breath Sounds, No Accessory Muscle Use, No Respiratory Distress Cardiovascular: No Edema, No JVD, No Murmur, Normal Peripheral Pulses, Irregularly Irregular Capillary Refill: Less Than 3 Seconds Extremity: Pedal Edema (TRACE EDEMA BILATERALLY. 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 Syncope due to hypotension which is in turn probably due to antihypertensive medications versus dehydration. 2. COVID19 pneumonia with residual effect but I do not see any evidence for active ongoing pulmonary infection. 3. Paroxysmal atrial fibrillation. Recommendations 1. Agree with holding antihypertensive medications until his hypotension significantly improved 2. Atrial fibrillation treatment and anticoagulation per cardiology 3. As his hypotension improves I would suggest to ambulate patient in the room. 4. His oral anticoagulant therapy is good enough for DVT prophylaxis. I have made a video visit and discussed with the patient and NEWS CAMERA OPERATOR. Collaboration of care with bedside consultants and IM physicians. Critical Care: Critically Ill Patient Time spent with patient (mins): 25 SCARLET MEDINA MD Sep 24, 2021 08:47
[2021-09-24] MEDS ORDERED: ENOXAPARIN 40 MG/0.4 ML (LOVENOX) SYR SC SCH (09:00)
[2021-09-24] MEDS ORDERED: GABAPENTIN 600 MG (NEURONTIN) TAB PO SCH (09:00)
[2021-09-24] MEDS: VASOPRESSIN INJECTION 20 UNIT in NS (IVPB) 100 ML IV SCH (09:30)
[2021-09-24 09:33] LABS: CHOLESTEROL 190 MG/DL (< 200); HDL CHOLESTEROL 46 MG/DL (40-60); TRIGLYCERIDES 167 MG/DL (<150); VLDL CHOLESTEROL 33 MG/DL (5-40)
--- NOTE | 2021-09-24 09:58 | Consultation-Cardiology ---
HPI-Cardiology Cardiology Consultation: Date of Consultation 09/24/21 Date of Admission 09/23/21 Attending Physician Tim Meza DO Admitting Physician Admitting Physician: Cherie Valencia MD Attending Physician: Cherie Valencia MD Consulting Physician JOSEPH ROSS JR, MD HPI: Time Seen by a Provider: 09:53 Chief Complaint: REASON FOR CONSULTATION: Syncope and hypotension. I had the pleasure of seeing Jad in the intensive care unit at [facility] in [place], [place] today. I actually saw him from the doorway given his COVID infection. He presented to the hospital due to a syncopal spell. He was found to have extremely low blood pressure and was also diagnosed with COVID infection. He was given a significant amount of intravenous fluid and his blood pressure is improved. He was then admitted to the intensive care unit. He has not required any vasopressors and is only on oxygen by nasal cannula. He was apparently in a hospital in [place] recently and from what we can gather, he was diagnosed with atrial fibrillation and placed on diltiazem, flecainide and r ivaroxaban. He has an appointment to see a thermoplastic technician but he is not sure if he saw a thermoplastic technician while he was in the hospital. Due to the syncope and low blood pressure consistent with shock, a cardiology consultation was requested. He has not been complaining of chest discomfort, dyspnea, paroxysmal nocturnal dyspnea, orthopnea, or palpitations. He has minimal bilateral lower extremity edema. His main complaint is that he wants his gabapentin which he takes chronically due to neuropathy. Certain portions of this document may have been dictated utilizing voice recognition technology. Inherent to this technology, typographical and grammatical errors may exist. As much as I am diligent to identify and correct these mistakes, some errors may remain in the document. Review of Systems-Cardiology Review of Systems Other comments Complete review of systems was not obtained due to the patient's COVID status. EEG-[id number]-Enhwvq Hx Patient Social History Smoking Status: Former Smoker Have you traveled recently?: No Alcohol Use?: Yes Substance type: Nicotine Pt feels they are or have been: No Tobacco type used: Cigarettes Past Medical History PMH As described under Assessment. Allergies and Home Medications Allergies Coded Allergies: No Known Drug Allergies (Unverified , 09/23/21) Patient Home Medication List Home Medication List Reviewed: Yes Allopurinol (Allopurinol) 300 Mg Tablet, (Reported) Entered as Reported by: Sivan Malhotra on 09/24/2113 Last Action: New Order Cetirizine HCl (Cetirizine HCl) 10 Mg Tablet, (Reported) Entered as Reported by: Sivan Malhotra on 09/24/2113 Last Action: New Order Diltiazem HCl (Diltiazem 24Hr ER) 180 Mg Cap.er.24h, (Reported) Entered as Reported by: Sivan Malhotra on 09/24/2113 Last Action: Held Flecainide Acetate (Flecainide Acetate) 150 Mg Tablet, (Reported) Entered as Reported by: Sivan Malhotra on 09/24/2113 Last Action: Reviewed Furosemide (Furosemide) 20 Mg Tablet, (Reported) Entered as Reported by: Sivan Malhotra on 09/24/2113 Last Action: Held Gabapentin (Gabapentin) 600 Mg Tablet, (Reported) Entered as Reported by: Sivan Malhotra on 09/24/2113 Last Action: New Order Gabapentin (Gralise) 300 Mg Tab.er.24h, (Reported) Entered as Reported by: Sivan Malhotra on 09/24/2113 Last Action: New Order Lisinopril/Hydrochlorothiazide (Lisinopril-Hctz 20-25 mg Tab) 20 Mg-25 Mg Tablet, (Reported) Entered as Reported by: Sivan Malhotra on 09/24/2113 Last Action: Held Magnesium Oxide (Magnesium Oxide) 400 Mg (241.3 Mg Magnesium) Tablet, (Reported) Entered as Reported by: Sivan Malhotra on 09/24/2113 Last Action: New Order Omeprazole (Omeprazole) 20 Mg Capsule.dr, (Reported) Entered as Reported by: Sivan Malhotra on 09/24/2113 Last Action: New Order Potassium Chloride (Potassium Chloride) 10 Meq Capsule.er, (Reported) Entered as Reported by: Sivan Malhotra on 09/24/2113 Last Action: Held Rivaroxaban (Xarelto) 20 Mg Tablet, 20 MG PO DAILY, (Reported) Entered as Reported by: Sivan Malhotra on 09/24/2113 Last Action: Continued Tadalafil (Tadalafil) 20 Mg Tablet, (Reported) Entered as Reported by: Sivan Malhotra on 09/24/2113 Last Action: Held Exam Vital Signs Vital Signs Date Time Temp Pulse Resp B/P (MAP) Pulse Ox O2 Delivery O2 Flow Rate FiO2 09/24/21 09:00 69 13 132/73 99 Room Air 09/24/21 07:44 36.1 09/24/21 07:00 4.00 Physical Exam Due to the patient's COVID status, I viewed the patient from the doorway. General: The patient is not on a ventilator. HENT: Normocephalic. Atraumatic. Skin: There is no pallor. Neurologic: Oriented x3. Cranial nerves III through XII grossly intact. Moving all 4 extremities. Psychiatric: Appears cooperative. Labs Laboratory Tests Test 09/23/21 19:01 09/23/21 19:02 09/23/21 21:15 09/24/21 00:05 Range/Units White Blood Count 13.2 H 4.3-11.0 10^3/uL Red Blood Count 4.20 L 4.30-5.52 10^6/uL Hemoglobin 14.5 13.3-17.7 g/dL Hematocrit 43 40-54 % Mean Corpuscular Volume 103 H 80-99 fL Mean Corpuscular Hemoglobin 35 H 25-34 pg Mean Corpuscular Hemoglobin Concent 34 32-36 g/dL Red Cell Distribution Width 13.6 10.0-14.5 % Platelet Count 295 130-400 10^3/uL Mean Platelet Volume 8.7 L 9.0-12.2 fL Immature Granulocyte % (Auto) 0 % Neutrophils (%) (Auto) 65 42-75 % Lymphocytes (%) (Auto) 24 12-44 % Monocytes (%) (Auto) 7 0-12 % Eosinophils (%) (Auto) 3 0-10 % Basophils (%) (Auto) 1 0-10 % Neutrophils # (Auto) 8.6 H 1.8-7.8 10^3/uL Lymphocytes # (Auto) 3.2 1.0-4.0 10^3/uL Monocytes # (Auto) 0.9 0.0-1.0 10^3/uL Eosinophils # (Auto) 0.4 H 0.0-0.3 10^3/uL Basophils # (Auto) 0.1 0.0-0.1 10^3/uL Immature Granulocyte # (Auto) 0.1 0.0-0.1 10^3/uL Erythrocyte Sedimentation Rate 22 0-30 MM/HR Prothrombin Time 21.3 H 12.2-14.7 SEC INR Comment 1.8 H 0.8-1.4 Activated Partial Thromboplast Time 33 24-35 SEC D-Dimer < 0.27 0.00-0.49 UG/ML Sodium Level 138 135-145 MMOL/L Potassium Level 4.3 3.6-5.0 MMOL/L Chloride Level 99 98-107 MMOL/L Carbon Dioxide Level 24 21-32 MMOL/L Anion Gap 15 H 5-14 MMOL/L Blood Urea Nitrogen 19 H 7-18 MG/DL Creatinine 1.84 H 0.60-1.30 MG/DL Estimat Glomerular Filtration Rate 41 BUN/Creatinine Ratio 10 Glucose Level 128 H 70-105 MG/DL Lactic Acid Level 2.28 *H 1.13 0.50-2.00 MMOL/L Calcium Level 9.8 8.5-10.1 MG/DL Corrected Calcium 9.6 8.5-10.1 MG/DL Magnesium Level 1.6 1.6-2.4 MG/DL Total Bilirubin 0.4 0.1-1.0 MG/DL Aspartate Amino Transf (AST/SGOT) 27 5-34 U/L Alanine Aminotransferase (ALT/SGPT) 32 0-55 U/L Alkaline Phosphatase 103 40-136 U/L Total Creatine Kinase 47 30-200 U/L Creatine Kinase MB 1.0 <6.6 NG/ML Myoglobin 98.0 H 10.0-92.0 NG/ML Troponin I < 0.028 < 0.028 <0.028 NG/ML C-Reactive Protein High Sensitivity 0.50 0.00-0.50 MG/DL B-Type Natriuretic Peptide 83.9 <100.0 PG/ML Total Protein 7.7 6.4-8.2 GM/DL Albumin 4.2 3.2-4.5 GM/DL Lipase 54 8-78 U/L Procalcitonin 0.10 H <0.10 NG/ML TSH [place] Testing 1.32 0.35-4.94 UIU/ML Acetaminophen Level < 10 L 10-30 UG/ML Serum Alcohol < 10 <10 MG/DL Influenza Type A (RT-PCR) Not Detected Not Detecte Influenza Type B (RT-PCR) Not Detected Not Detecte SARS-CoV-2 RNA (RT-PCR) Detected H Not Detecte Test 09/24/21 04:35 09/24/21 04:57 Range/Units Triglycerides Level 167 H <150 MG/DL Cholesterol Level 190 < 200 MG/DL LDL Cholesterol Direct 133 H 1-129 MG/DL VLDL Cholesterol 33 5-40 MG/DL HDL Cholesterol 46 40-60 MG/DL White Blood Count 10.0 4.3-11.0 10^3/uL Red Blood Count 3.44 L 4.30-5.52 10^6/uL Hemoglobin 12.0 L 13.3-17.7 g/dL Hematocrit 36 L 40-54 % Mean Corpuscular Volume 105 H 80-99 fL Mean Corpuscular Hemoglobin 35 H 25-34 pg Mean Corpuscular Hemoglobin Concent 33 32-36 g/dL Red Cell Distribution Width 13.8 10.0-14.5 % Platelet Count 200 130-400 10^3/uL Mean Platelet Volume 8.7 L 9.0-12.2 fL Immature Granulocyte % (Auto) 0 % Neutrophils (%) (Auto) 68 42-75 % Lymphocytes (%) (Auto) 23 12-44 % Monocytes (%) (Auto) 6 0-12 % Eosinophils (%) (Auto) 2 0-10 % Basophils (%) (Auto) 1 0-10 % Neutrophils # (Auto) 6.8 1.8-7.8 10^3/uL Lymphocytes # (Auto) 2.3 1.0-4.0 10^3/uL Monocytes # (Auto) 0.6 0.0-1.0 10^3/uL Eosinophils # (Auto) 0.2 0.0-0.3 10^3/uL Basophils # (Auto) 0.1 0.0-0.1 10^3/uL Immature Granulocyte # (Auto) 0.0 0.0-0.1 10^3/uL Sodium Level 139 135-145 MMOL/L Potassium Level 4.1 3.6-5.0 MMOL/L Chloride Level 109 H 98-107 MMOL/L Carbon Dioxide Level 20 L 21-32 MMOL/L Anion Gap 10 5-14 MMOL/L Blood Urea Nitrogen 18 7-18 MG/DL Creatinine 1.09 0.60-1.30 MG/DL Estimat Glomerular Filtration Rate 77 BUN/Creatinine Ratio 17 Glucose Level 127 H 70-105 MG/DL Calcium Level 8.6 8.5-10.1 MG/DL Corrected Calcium 9.2 8.5-10.1 MG/DL Phosphorus Level 3.5 2.3-4.7 MG/DL Magnesium Level 1.4 L 1.6-2.4 MG/DL Total Bilirubin 0.3 0.1-1.0 MG/DL Aspartate Amino Transf (AST/SGOT) 21 5-34 U/L Alanine Aminotransferase (ALT/SGPT) 22 0-55 U/L Alkaline Phosphatase 82 40-136 U/L Total Protein 5.9 L 6.4-8.2 GM/DL Albumin 3.3 3.2-4.5 GM/DL ECG Impression ECG Comment Electrocardiogram from this morning on 09/24 shows sinus rhythm with nonspecific intraventricular conduction delay. Diagnosis/Problems Diagnosis/Problems (1) Syncope Status: Acute Assessment & Plan: I suspect this may have been related to severe hypotension. There is no evidence of Rspgt-Vcvupgnri-Aints, Brugada syndrome, or prolonged or short QT on his resting electrocardiogram. Once he recovers from his COVID infection, he will need to follow-up with his thermoplastic technician at the outside facility. (2) Shock Assessment & Plan: Unclear whether or not this may have been related to his COVID infection or recent changes in his antihypertensive medication resulting in iatrogenic hypotension. All antihypertensive medication is on hold at this point in time. (3) Persistent atrial fibrillation Assessment & Plan: He is in sinus rhythm. I will resume his flecainide. He should continue on rivaroxaban for stroke prophylaxis. If his blood pressure remains normotensive, I would consider starting low-dose metoprolol succinate. He will need to follow-up with his outside thermoplastic technician following discharge. (4) Primary hypertension Assessment & Plan: All antihypertensive medication is on hold due to the shock that was present at the time of admission. (5) Pneumonia due to COVID-19 virus Status: Acute Assessment & Plan: This is being managed by the hospitalist and eICU. JOSEPH ROSS JR, MD Sep 24, 2021 09:58
[2021-09-24] MEDS: NOREPINEPHRINE 8 MG/250 ML 250 ML IV SCH (11:41)
[2021-09-24] MEDS: GABAPENTIN 600 MG (NEURONTIN) TAB PO SCH ×2 (12:53→20:57)
--- NOTE | 2021-09-24 15:17 | Progress Note - Hospitalist ---
Subjective HPI/CC On Admission Date Seen by Provider: Sep 24, 2021 Time Seen by Provider: 11:00 Focused Exam Lactate Level 09/23/21 19:01: Lactic Acid Level 2.28*H 09/23/21 21:15: Lactic Acid Level 1.13 Time of Focused Exam: 21:00 Objective Exam Vital Signs Vital Signs Date Time Temp Pulse Resp B/P (MAP) Pulse Ox O2 Delivery O2 Flow Rate FiO2 09/24/21 12:50 92 09/24/21 11:41 131/85 09/24/21 11:00 21 100 Room Air 09/24/21 07:44 36.1 09/24/21 07:00 4.00 Capillary Refill : Less Than 3 Seconds Results/Procedures Lab Laboratory Tests 09/23/21 19:01 09/24/21 04:57 Patient resulted labs reviewed. Assessment/Plan Critical Care Critically Ill Patient Clinical Quality Measures AMI/AHF: ASA po Prior to arrival: FATIMAH Liang MD Sep 24, 2021 15:17
--- NOTE | 2021-09-24 15:20 | History & Physical-Hospitalist ---
History of Present Illness HPI/Chief Complaint Jad Elkins is a 61 year old male with PMH HTN, AFib, GERD, gout, peripheral neuropathy, who presented after a syncopal episode. He was at [employer] when this episode occured. He walked in and felt lightheaded. His girlfriend had him sit down at a patel but he continued to feel unwell and then passed out. She sternal rubbed him extensively. He woke up a few minutes later. He denies chest pain and palpitations. He denies shortness of breath. He denies sore throat, runny or stuffy nose, and cough. He denies abdominal pain. He denies nausea and vomiting. He has not been around anyone sick. He got one COVID vaccine last year. 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 He thinks he drinks plenty of fluid. Source: patient Exam Limitations: no limitations Date Seen 09/24/21 Time Seen by a Provider: 11:00 Attending Physician Tim Meza DO PCP Admitting Physician: Cherie Valencia MD Attending Physician: Cherie Valencia MD Referring Physician Date of Admission Sep 23, 2021 at 21:12 Home Medications & Allergies Home Medications Reviewed patient Home Medication Reconciliation performed by pharmacy medication reconciliations sales and service technician and/or nursing. Patients Allergies have been reviewed. Allergies Allergies Coded Allergies No Known Drug Allergies (Unverified09/23/21) Past Xjirqpn-Gneqle-Evwrky Hx Patient Social History Tobacco Use?: Yes Tobacco type used: Cigarettes Smoking Status: Former Smoker Smokeless type used: Chew Smokeless Tobacco Frequency: Never a User Use of E-Cig and/or Vaping dev: No Substance use?: Yes Substance type: Nicotine Additional substance use comme: "IN THE 70'S"--DOES NOT STATE WHAT KINDS Alcohol Use?: Yes Alcohol type: Beer Alcohol Frequency: Daily Pt feels they are or have been: No Immunizations Up To Date First/Initial COVID19 Vaccinat: x1 Tetanus Booster (TDap): Less Than 5 Years Current Status Advance Directives: No Communicates: Verbally Primary Language: Azeri Preferred Spoken Language: Azeri Is interpretation needed?: No Sensory deficits: Vision impairment Implanted or Applied Medical D: None Past Medical History Surgeries: Orthopedic Atrial Fibrillation, Chronic Edema/Swelling, High Cholesterol, Hypertension Neuropathy Fractures Blood Disorders: No Family Medical History SOCIAL HISTORY: -SMOKED 1 PPD, QUIT > 5 YEARS AGO -ETOH--DRINKS BEER DAILY--OVER A 12 PACK/WEEK -DRUGS--"IN THE 70'S" --DOES NOT STATE WHAT KINDS PAST SURGICAL HISTORY: -RIGHT KNEE--PATELLA FX/ORIF -RIGHT ANKLE REPAIR -BILATERAL CARPAL TUNNEL SURGERY -BILATERAL CUBITAL TUNNEL SURGERY Review of Systems Constitutional: dizziness, weakness EENTM: no symptoms reported Respiratory: no symptoms reported Cardiovascular: no symptoms reported Gastrointestinal: no symptoms reported Skin: no symptoms reported Physical Exam Physical Exam Vital Signs Vital Signs - First Documented 09/23/21 09/23/21 18:54 21:53 Temp 36.6 Pulse 105 Resp 16 B/P (MAP) 61/43 (49) Pulse Ox 95 O2 Delivery Room Air O2 Flow Rate 4.00 Capillary Refill : Less Than 3 Seconds Height, Weight, BMI Height: '" Weight: lbs. oz. kg; 35.00 BMI Method: General Appearance: No Apparent Distress, Obese HEENT: PERRL/EOMI, Pharynx Normal Neck: Normal Inspection, Supple Respiratory: Lungs Clear, Normal Breath Sounds, No Respiratory Distress Cardiovascular: Regular Rate, Rhythm, No Edema, No Murmur Gastrointestinal: Normal Bowel Sounds, Non Tender, Soft Extremity: Normal Inspection, Non Tender, No Pedal Edema Neurologic/Psychiatric: Alert, Oriented x3, No Motor/Sensory Deficits, Normal Mood/Affect Skin: Normal Color, Warm/Dry Results Results/Procedures Labs Laboratory Tests 09/23/21 19:01 09/24/21 04:57 Patient resulted labs reviewed. Imaging: Reviewed Imaging Report Assessment/Plan Admission Diagnosis Syncope due to orthostatic hypotension Admission Status: Inpatient Order (span 2 midnights) Reason for Inpatient Admission: IV fluids, cardiac monitoring Assessment and Plan Syncope Orthostatic hypotension Dehydration MILO Lactic acidosis Persistent AFib Obesity Appears to be due to dehydration CTA negative Cardiology consutled IV fluids Cr improved Diagnosis/Problems Diagnosis/Problems (1) Syncope due to orthostatic hypotension Status: Acute (2) Dehydration Status: Acute (3) Persistent atrial fibrillation Status: Chronic (4) MILO (acute kidney injury) Status: Acute (5) COVID-19 virus infection Status: Acute Clinical Quality Measures AMI/AHF: ASA po Prior to arrival: FATIMAH Liang MD Sep 24, 2021 15:20
[2021-09-24] MEDS ORDERED: RIVAROXABAN 20 MG TABLET (XARELTO) PO SCH (17:00)
[2021-09-24] MEDS ORDERED: cefTRIAXone 1 GM/50 ML (PRE-MIX) IV SCH (21:00)
[2021-09-24] MEDS ORDERED: GABAPENTIN 300 MG (NEURONTIN) CAP PO SCH (21:00)
[2021-09-24] MEDS ORDERED: AZITHROMYCIN 500 MG/NS 250 ML IVPB IV SCH ×2 (21:00)
[2021-09-25 07:00] LABS: BASOPHILS # (AUTO) 0.1 10^3/uL (0.0-0.1); BASOPHILS % (AUTO) 1 % (0-10); EOSINOPHILS # (AUTO) 0.3 10^3/uL (0.0-0.3); EOSINOPHILS % (AUTO) 4 % (0-10); HEMATOCRIT 39 % (40-54); HEMOGLOBIN 12.7 g/dL (13.3-17.7); LYMPHOCYTES # (AUTO) 2.3 10^3/uL (1.0-4.0); LYMPHOCYTES % (AUTO) 25 % (12-44); MEAN CORPUSCULAR HEMOGLOBIN 35 pg (25-34); MEAN CORPUSCULAR HGB CONC 33 g/dL (32-36); MEAN CORPUSCULAR VOLUME 106 fL (80-99); MEAN PLATELET VOLUME 8.4 fL (9.0-12.2); MONOCYTES # (AUTO) 0.6 10^3/uL (0.0-1.0); MONOCYTES % (AUTO) 6 % (0-12); NEUTROPHILS # (AUTO) 5.9 10^3/uL (1.8-7.8); NEUTROPHILS % (AUTO) 65 % (42-75); PLATELET COUNT 199 10^3/uL (130-400); WHITE BLOOD COUNT 9.1 10^3/uL (4.3-11.0)
[2021-09-25 07:30] LABS: ALBUMIN 4.1 GM/DL (3.2-4.5); BILIRUBIN,TOTAL 0.5 MG/DL (0.1-1.0); CALCIUM 9.7 MG/DL (8.5-10.1); CREATININE SERUM 0.88 MG/DL (0.60-1.30); MAGNESIUM 2.1 MG/DL (1.6-2.4); PHOSPHORUS 3.7 MG/DL (2.3-4.7); POTASSIUM 4.3 MMOL/L (3.6-5.0); TOTAL PROTEIN 7.2 GM/DL (6.4-8.2)
[2021-09-25] MEDS ORDERED: RIVAROXABAN 20 MG TABLET (XARELTO) PO SCH (08:00)
[2021-09-25] MEDS: GABAPENTIN 600 MG (NEURONTIN) TAB PO SCH (09:10)
[2021-09-25] MEDS ORDERED: FLECAINIDE 100 MG (TAMBOCOR) TAB PO SCH (09:45)
--- NOTE | 2021-09-25 09:51 | Cardiology Progress Note ---
Progress Note-Cardiology Events since last exam Date Seen by Provider: Sep 25, 2021 Time Seen by Provider: 09:47 Events since last exam I am following him due to atrial fibrillation and syncope. I did not enter his room but I did speak to him from the doorway. He tells me he had seen Dr. Martinez about 3 years ago for atrial fibrillation and has been taking diltiazem and flecainide since that time. Last month he was in [facility] with an episode of syncope and then had an appointment scheduled with Dr. Eubanks in October. He was transferred from the intensive care unit to the medical floor yesterday evening. He denies any recurrent syncope. He denies chest discomfort, dyspnea, palpitations, or ankle edema. He wants to know if he can go home today. Certain portions of this document may have been dictated utilizing voice recognition technology. Inherent to this technology, typographical and grammati eddie errors may exist. As much as I am diligent to identify and correct these mistakes, some errors may remain in the document. Vitals Last set of Vitals Signs Vital Signs 09/24/21 09/25/21 09/25/21 09/25/21 07:00 04:00 07:00 08:00 Temp 36.2 Pulse 87 Resp 16 B/P (MAP) 143/89 Pulse Ox 95 O2 Delivery Room Air O2 Flow Rate 4.00 Labs Labs Laboratory Tests 09/25/21 06:45 Exam Vital Signs Vital Signs Date Time Temp Pulse Resp B/P (MAP) Pulse Ox O2 Delivery O2 Flow Rate FiO2 09/25/21 08:00 Room Air 09/25/21 07:00 87 09/25/21 04:00 36.2 16 143/89 95 09/24/21 07:00 4.00 Physical Exam Due to the patient's COVID status, I viewed the patient from the doorway. General: The patient is not on a ventilator. He was sitting up in a chair breathing comfortably. HENT: Normocephalic. Atraumatic. Skin: There is no pallor. Neurologic: Oriented x3. Cranial nerves III through XII grossly intact. Moving all 4 extremities. Psychiatric: Pleasant and cooperative. Labs Laboratory Tests Test 09/25/21 06:45 Range/Units White Blood Count 9.1 4.3-11.0 10^3/uL Red Blood Count 3.65 L 4.30-5.52 10^6/uL Hemoglobin 12.7 L 13.3-17.7 g/dL Hematocrit 39 L 40-54 % Mean Corpuscular Volume 106 H 80-99 fL Mean Corpuscular Hemoglobin 35 H 25-34 pg Mean Corpuscular Hemoglobin Concent 33 32-36 g/dL Red Cell Distribution Width 13.8 10.0-14.5 % Platelet Count 199 130-400 10^3/uL Mean Platelet Volume 8.4 L 9.0-12.2 fL Immature Granulocyte % (Auto) 0 % Neutrophils (%) (Auto) 65 42-75 % Lymphocytes (%) (Auto) 25 12-44 % Monocytes (%) (Auto) 6 0-12 % Eosinophils (%) (Auto) 4 0-10 % Basophils (%) (Auto) 1 0-10 % Neutrophils # (Auto) 5.9 1.8-7.8 10^3/uL Lymphocytes # (Auto) 2.3 1.0-4.0 10^3/uL Monocytes # (Auto) 0.6 0.0-1.0 10^3/uL Eosinophils # (Auto) 0.3 0.0-0.3 10^3/uL Basophils # (Auto) 0.1 0.0-0.1 10^3/uL Immature Granulocyte # (Auto) 0.0 0.0-0.1 10^3/uL Sodium Level 140 135-145 MMOL/L Potassium Level 4.3 3.6-5.0 MMOL/L Chloride Level 105 98-107 MMOL/L Carbon Dioxide Level 24 21-32 MMOL/L Anion Gap 11 5-14 MMOL/L Blood Urea Nitrogen 12 7-18 MG/DL Creatinine 0.88 0.60-1.30 MG/DL Estimat Glomerular Filtration Rate 98 BUN/Creatinine Ratio 14 Glucose Level 96 70-105 MG/DL Calcium Level 9.7 8.5-10.1 MG/DL Corrected Calcium 9.6 8.5-10.1 MG/DL Phosphorus Level 3.7 2.3-4.7 MG/DL Magnesium Level 2.1 1.6-2.4 MG/DL Total Bilirubin 0.5 0.1-1.0 MG/DL Aspartate Amino Transf (AST/SGOT) 23 5-34 U/L Alanine Aminotransferase (ALT/SGPT) 30 0-55 U/L Alkaline Phosphatase 110 40-136 U/L Total Protein 7.2 6.4-8.2 GM/DL Albumin 4.1 3.2-4.5 GM/DL Diagnosis/Problems Diagnosis/Problems (1) Syncope Status: Acute Assessment & Plan: I suspect this may have been related to severe hypotension. There is no evidence of Juefn-Xskkuszws-Btybb, Brugada syndrome, or prolonged or short QT on his resting electrocardiogram. Once he recovers from his COVID infection, he will need to follow-up with his it lead at the outside facility. I will restart his diltiazem for the atrial fibrillation. I re commend we do not restart lisinopril or hydrochlorothiazide. (2) Persistent atrial fibrillation Status: Chronic Assessment & Plan: He was in sinus rhythm at the time of admission but now appears to be back in atrial fibrillation. I thought I had ordered his flecainide but it appears my order did not go through. I have reordered the flecainide to start this morning. He should continue on rivaroxaban for stroke prophylaxis. I held his diltiazem at the time of admission due to low blood pressures and syncope. I think it would be safe to resume his diltiazem at this point in time. He will need to follow-up with his outside it lead following discharge. From a cardiac standpoint, he can be discharged home once his noncardiac issues have improved. (3) Primary hypertension Assessment & Plan: All antihypertensive medication was on hold due to the shock that was present at the time of admission. The shock has resolved. I will restart his diltiazem. I suggest we hold off on resuming his lisinopril/hydrochlorothiazide. I would just discharge him with diltiazem alone and he can follow-up with his primary provider and it lead about whether or not to restart the other in June and/or hydrochlorothiazide down the road. (4) Shock Assessment & Plan: Unclear whether or not this may have been related to his COVID infection or recent changes in his antihypertensive medication resulting in iatrogenic hypotension. All antihypertensive medication is on hold at this point in time. The shock has resolved. We will proceed as above. (5) Pneumonia due to COVID-19 virus Status: Acute Assessment & Plan: This is being managed by the hospitalist. JOSEPH ROSS JR, MD Sep 25, 2021 09:51
[2021-09-25 12:45] VITALS: BP 143/89
--- NOTE | 2021-09-25 22:43 | Discharge Summary ---
Discharge Summary Hospital Course Problems/Dx: (1) Syncope Status: Acute (2) Persistent atrial fibrillation Status: Chronic (3) Primary hypertension Status: Acute (4) Shock Status: Acute (5) COVID-19 virus infection Status: Acute Hospital Course Date of Admission: Sep 23, 2021 at 21:12 Admission Diagnosis : Syncope Family Physician/Provider: Tim Meza DO Date of Discharge: 09/25/21 Discharge Diagnosis: Syncope due to orthostatic hypotension Hospital Course: Jad Elkins is a 61 year old male who was admitted with syncope. He was found to have orthostatic hypotension. He was dehydrated. 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 He was given IV fluids and his symptoms resolved. He also tested positive for COVID but remained asymptomatic. He wsa discharged home in stable condition. Labs and Pending Lab Test: Laboratory Tests 09/25/21 06:45: White Blood Count 9.1, Red Blood Count 3.65L, Hemoglobin 12.7L, Hematocrit 39L, Mean Corpuscular Volume 106H, Mean Corpuscular Hemoglobin 35H, Mean Corpuscular Hemoglobin Concent 33, Red Cell Distribution Width 13.8, Platelet Count 199, Mean Platelet Volume 8.4L, Immature Granulocyte % (Auto) 0, Neutrophils (%) (Auto) 65, Lymphocytes (%) (Auto) 25, Monocytes (%) (Auto) 6, Eosinophils (%) (Auto) 4, Basophils (%) (Auto) 1, Neutrophils # (Auto) 5.9, Lymphocytes # (Auto) 2.3, Monocytes # (Auto) 0.6, Eosinophils # (Auto) 0.3, Basophils # (Auto) 0.1, Immature Granulocyte # (Auto) 0.0, Sodium Level 140, Potassium Level 4.3, Chloride Level 105, Carbon Dioxide Level 24, Anion Gap 11, Blood Urea Nitrogen 12, Creatinine 0.88, Estimat Glomerular Filtration Rate 98, BUN/Creatinine Ratio 14, Glucose Level 96, Calcium Level 9.7, Corrected Calcium 9.6, Phosphorus Level 3.7, Magnesium Level 2.1, Total Bilirubin 0.5, Aspartate Amino Transf (AST/SGOT) 23, Alanine Aminotransferase (ALT/SGPT) 30, Alkaline Phosphatase 110, Total Protein 7.2, Albumin 4.1 Microbiology 09/23/21 Blood Culture - Preliminary, Resulted No growth Home Meds Active Reported Xarelto (Rivaroxaban) 20 Mg Tablet 20 Mg PO DAILY Tadalafil 20 Mg Tablet Gralise (Gabapentin) 300 Mg Tab.er.24h 300 Mg PO HS Gabapentin 600 Mg Tablet 600 Mg PO TID Omeprazole 20 Mg Capsule. Cetirizine HCl 10 Mg Tablet Allopurinol 300 Mg Tablet Flecainide Acetate 150 Mg Tablet Diltiazem 24Hr ER (Diltiazem HCl) 180 Mg Cap.er.24h Magnesium Oxide 400 Mg (241.3 Mg Magnesium) Tablet Assessment/Pt Instructions See instructions Discharge Planning: >30 minutes discharge planning Discharge Instructions Discharge Diet: No Restrictions Activity as Tolerated: Yes Discharge Physical Examination Vital Signs Vital Signs Date Time Temp Pulse Resp B/P (MAP) Pulse Ox O2 Delivery O2 Flow Rate FiO2 09/25/21 12:45 36.2 87 16 143/89 95 Room Air 09/24/21 07:00 4.00 General Appearance: No Apparent Distress, Obese Respiratory: Lungs Clear, No Respiratory Distress Cardiovascular: Regular Rate, Rhythm, No Murmur Gastrointestinal: Normal Bowel Sounds, Soft Extremity: Normal Inspection, No Pedal Edema Skin: Normal Color, Warm/Dry Neurologic/Psychiatric: Alert, Normal Mood/Affect Allergies: Coded Allergies: No Known Drug Allergies (Unverified , 09/23/21) Discharge Summary Date of Admission Sep 23, 2021 at 21:12 Date of Discharge Sep 25, 2021 at 12:45 Discharge Date: Sep 25, 2021 Discharge Time: 12:45 Admission Diagnosis Syncope due to orthostatic hypotension Discharge Diagnosis Syncope Orthostatic hypotension (1) Syncope Status: Acute (2) Persistent atrial fibrillation Status: Chronic (3) Primary hypertension Status: Acute (4) Shock Status: Acute (5) COVID-19 virus infection Status: Acute Clinical Quality Measures AMI/AHF: ASA po Prior to arrival: FATIMAH Liang MD Sep 25, 2021 22:39
== END 2021-09-25 12:45 | disposition home or self-care (01) | DRG 312 ==
LOC: ER 18:55 → ICU 21:12 → 4TH 09-24 12:08
PROVIDERS: ADMIT Family Medicine; ATTEND Family Medicine
PROC: 8E0ZXY6 Isolation (ICD-10-PCS; principal; 2021-09-23)
DX: I95.1 Orthostatic hypotension (principal); U07.1 COVID-19; J12.82 Pneumonia due to coronavirus disease 2019; I48.19 Other persistent atrial fibrillation; N17.9 Acute kidney failure, unspecified; E87.2 Acidosis; I10 Essential (primary) hypertension; K21.9 Gastro-esophageal reflux disease without esophagitis; M10.9 Gout, unspecified; G62.9 Polyneuropathy, unspecified; Z28.311 Partially vaccinated for COVID-19; Z87.891 Personal history of nicotine dependence; E78.00 Pure hypercholesterolemia, unspecified; E86.0 Dehydration; E66.9 Obesity, unspecified; I48.0 Paroxysmal atrial fibrillation; Z68.35 Body mass index [BMI] 35.0-35.9, adult
CPT/HCPCS: 36415; 70450; 71045; 71275; 74177; 80053; 80061; 80320; 80329; 82550; 82553; 83036; 83605; 83690; 83735; 83874; 83880; 84100; 84145; 84443; 84484; 85025; 85379; 85610; 85652; 85730; 86141; 87040; 87636; 93005; 93041; 99291